=== PATIENT | male | born 1960 | race Caucasian/White ===

== ENCOUNTER 2021-01-08 09:15 | Emergency (ER) | payer BC ==
[~2021-01-08] VITALS: Ht 182.9 cm; Wt 99.8 kg
[2021-01-08] MEDS ORDERED: DECADRON4 M1 PO (09:28)
[2021-01-08] MEDS ORDERED: AZITHROMYCIN250 MG PO (09:28)
[2021-01-08] MEDS ORDERED: THERAFLU NIGHT1 EAC5 PO (09:28)
[2021-01-08] MEDS ORDERED: ACETAMINOPHEN 325 MG TAB PO ONE (09:30)
[2021-01-08] MEDS ORDERED: CASIRIVIMAB/IMDEVIMAB 10 ML in SODIUM CHLORIDE 0.9% 100 ML IV ONE (09:30)
[2021-01-08] MEDS ORDERED: DIPHENHYDRAMINE HCL INJ 50 MG/ML VIAL IV ONE (09:30)
== END 2021-01-08 11:25 | disposition home or self-care (01) ==
LOC: FSED 09:17
DX: R50.9 Fever, unspecified (principal); R05 Cough; U07.1 COVID-19; R53.81 Other malaise
CPT/HCPCS: 96374; 99283; J1200; J7050